=== PATIENT | male | born 1940 | race Caucasian/White ===

== ENCOUNTER → 2025-03-03 | Day surgery (SDC) | payer MEDICARE, MEDICAID ==
[~2025-03-03] MED LIST: Dexamethasone/Neomycin/Polymyxin B Ophth Oint 3.5 GM Tube ONE; Lidocaine 1% 2 ML ONE; Midazolam 1 MG/ML 2 ML SDV ONE; Naloxone 0.4 MG/ML SDV ONE; Phenyleprhine/Ketorolac 4 ML Vial ONE; Povidone-Iodine 5% Sterile Ophth Soln 30 ML Bottle ONE; fentaNYL 100 MCG/2 ML SDV ONE
[2025-03-03] MEDS: Cyclopentolate 1% Opth Soln 2 ML Bottle EYERT SCH (07:59)
[2025-03-03] MEDS: Moxifloxacin 0.5% Ophth Soln 3 ML Bottle EYERT ONE ×2 (08:17→09:14)
[2025-03-03] MEDS: Povidone-Iodine 5% Sterile Ophth Soln 30 ML Bottle EYERT ONE (09:13)
[2025-03-03] MEDS: Phenyleprhine/Ketorolac 4 ML Vial IO ONE (09:14)
[2025-03-03] MEDS: Lidocaine 1% PF 2 ML SDV INFILT ONE (09:14)
[2025-03-03] MEDS: Balanced Salt Solution Ophth Irrig 500 ML Bottle IOCULAR ONE (09:14)
[2025-03-03] MEDS: Chondroitin Sulfate/Hyaluronate Sodium Ophth Inj 0.5 ML Syringe IOCULAR ONE (09:15)
[2025-03-03] MEDS: Dexamethasone/Neomycin/Polymyxin B Ophth Oint 3.5 GM Tube EYERT ONE (09:21)
[2025-03-03] MEDS: acetaZOLAMIDE 500 MG Cap.ER PO ONE (09:39)
== END ==
LOC: VM.SDS 07:37
PROVIDERS: ATTEND Ophthalmology
DX: H25.813 Combined forms of age-related cataract, bilateral (principal); Z79.899 Other long term (current) drug therapy
CPT/HCPCS: 66984; A9270; J1097; J2003; J2250; J2312; J3010; V2632; 00142; 99100; J0690; J3490

== ENCOUNTER 2025-03-31 07:39 | Day surgery (SDC) | payer MEDICARE, MEDICAID ==
[~2025-03-31 07:39] MED LIST changes: -Midazolam 1 MG/ML 2 ML SDV ONE; -Naloxone 0.4 MG/ML SDV ONE; -fentaNYL 100 MCG/2 ML SDV ONE
[2025-03-31] MEDS: Cyclopentolate 1% Opth Soln 2 ML Bottle EYELF SCH (07:45)
[2025-03-31] MEDS: Moxifloxacin 0.5% Ophth Soln 3 ML Bottle EYELF ONE ×2 (08:05→09:21)
[2025-03-31] MEDS ORDERED: Midazolam 1 MG/ML 2 ML SDV ONE (08:44)
[2025-03-31] MEDS ORDERED: fentaNYL 100 MCG/2 ML SDV ONE (08:44)
[2025-03-31] MEDS: Povidone-Iodine 5% Sterile Ophth Soln 30 ML Bottle EYELF ONE (09:20)
[2025-03-31] MEDS: Phenyleprhine/Ketorolac 4 ML Vial IOCULAR ONE (09:21)
[2025-03-31] MEDS: Balanced Salt Solution Ophth Irrig 500 ML Bottle IOCULAR ONE (09:21)
[2025-03-31] MEDS: Lidocaine 1% PF 2 ML SDV INFILT ONE (09:22)
[2025-03-31] MEDS: Dexamethasone/Neomycin/Polymyxin B Ophth Oint 3.5 GM Tube EYELF ONE (09:22)
[2025-03-31] MEDS: Chondroitin Sulfate/Hyaluronate Sodium Ophth Inj 0.5 ML Syringe IOCULAR ONE (09:22)
[2025-03-31] MEDS: acetaZOLAMIDE 500 MG Cap.ER PO ONE (09:40)
== END 2025-03-31 10:00 | disposition home or self-care (01) ==
LOC: VM.SDS 07:39
PROVIDERS: ATTEND Ophthalmology
DX: H25.813 Combined forms of age-related cataract, bilateral (principal); H57.03 Miosis
CPT/HCPCS: 00142; 99100; A9270-GY; J0690; J1097; J2003; J2250; J3010; J3490; V2632